=== PATIENT | female | born 1935 | race Two or more races ===

== ENCOUNTER 2022-08-14 14:27 | Inpatient (IN) | payer MEDICARE, MEDICAID ==
[~2022-08-14] VITALS: Ht 152.4 cm; Wt 57.6 kg
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
--- NOTE | 2022-08-14 15:06 | NUR ---
DR GRACE AT BEDSIDE FOR EVAL.
[2022-08-14] MEDS ORDERED: INSULIN REG (15:09)
--- NOTE | 2022-08-14 15:25 | NUR ---
BIOINFORMATICS SCIENTIST AT BEDSIDE FOR BLOOD DRAW.
--- NOTE | 2022-08-14 15:25 | NUR ---
Francesco au in [facility] - 08/14/22 at 1624 by FREDERICK SCREW REMOVER AT BEDSIDE FOR ALISHAAL.
--- NOTE | 2022-08-14 15:27 | NUR ---
Francesco au in [facility] - 08/14/22 at 1541 by FREDERICK KELSY FUENTES,
[2022-08-14 15:41] LABS: BASOPHILS % (AUTO) 0.6 % (0.0-2.0); EOSINOPHILS % (AUTO) 2.6 % (0.0-6.0); HEMATOCRIT 38 % (33-45); HEMOGLOBIN 12.2 g/dL (11.5-14.8); LYMPHOCYTES # (AUTO) 2.2 K/uL (0.8-4.8); LYMPHOCYTES % (AUTO) 30.6 % (20.0-44.0); MEAN CORPUSCULAR HGB CONC 32 g/dl (31.0-36.0); MEAN CORPUSCULAR VOLUME 92 fL (82-100); MONOCYTES # (AUTO) 0.4 K/uL (0.1-1.30); MONOCYTES % (AUTO) 5.4 % (2.0-12.0); NEUTROPHILS # (AUTO) 4.4 K/uL (1.8-8.9); NEUTROPHILS % (AUTO) 60.8 % (43.0-81.0); PLATELET COUNT (AUTO) 209 K/uL (150-450); RED BLOOD CELL COUNT(AUTO) 4.11 MIL/uL (4.0-5.2); WHITE BLOOD COUNT (AUTO) 7.3 K/uL (4.3-11.0)
[2022-08-14 15:52] LABS: CALCIUM, SERUM 8.8 mg/dL (8.5-10.1); CARBON DIOXIDE 26 mmol/L (21-32); CHLORIDE 106 mmol/L (98-107); CREATININE 1.4 mg/dL (0.6-1.3); GLUCOSE 168 mg/dL (74-106); POTASSIUM 4.3 mmol/L (3.5-5.1); SODIUM SERUM 139 mmol/L (136-145); UREA NITROGEN, BLOOD 36 mg/dL (7-18)
--- NOTE | 2022-08-14 16:23 | NUR ---
COVID SWAB AND URINE COLLECTED AND SENT
[2022-08-14 17:32] LABS: BILIRUBIN,URINE NEGATIVE (NEGATIVE); COLOR,URINE YELLOW (YELLOW); LEUKOCYTE ESTERASE ,URINE 3+ (NEGATIVE); NITRITE, URINE NEGATIVE (NEGATIVE); PROTEIN,URINE TRACE mg/dl (NEGATIVE); UGLUCOSE TRACE mg/dL (NEGATIVE); UROBILINOGEN,URINE 0.2 EU/dL (0.2)
--- NOTE | 2022-08-14 17:43 | NUR ---
BED 116-1, JOSE GOLDBERG
--- NOTE | 2022-08-14 18:07 | NUR ---
NEW BED ASSIGNMENT 314-2
--- NOTE | 2022-08-14 18:20 | NUR ---
REPORT GIVEN TO FAWN SANTANA FOR [place]
--- NOTE | 2022-08-14 18:25 | NUR ---
TRANSFERRED TO BED 314 IN STABLE CONDITION
[2022-08-14] MEDS ORDERED: ONDANSETRON HCL/PF 4 MG/2 ML VIAL IVP PRN (18:30)
[2022-08-14] MEDS ORDERED: MAGNESIUM HYDROXIDE 30 ML UDC PO PRN (18:30)
[2022-08-14] MEDS ORDERED: MAG HYDROX/AL HYDROX/SIMETH 30 ML UDC PO PRN (18:30)
[2022-08-14] MEDS ORDERED: DEXTROSE 50%-WATER 50 ML DISP.SYRIN IV PRN (18:30)
[2022-08-14] MEDS ORDERED: Z GUARD REMEDY 4 OZ OINT TP PRN (18:30)
[2022-08-14] MEDS: ACETAMINOPHEN 325 MG TABLET PO PRN (18:52)
[2022-08-14 18:55] LABS: BACTERIA,URINE 3+ /HPF (None Seen); WBC,URINE 51-80 /HPF (0-3)
--- NOTE | 2022-08-14 19:40 | NUR ---
MS RN OPENING NOTE RECEIVED PATIENT IN BED; AWAKE, ALERT AND ORIENTED X 4. CITIZEN OF [place] SPEAKING. ON ROOM AIR; TOLERATING WELL. BREATHING EVEN AND NONLABORED. NOT IN ANY FORM OF RESPIRATORY DISTRESS. DENIES ANY PAIN OR DISCOMFORT AT THIS TIME. WITH IV ACCESS ON RIGHT FOREARM 20g; PATENT, INTACT AND SALINE LOCKED. ABLE TO MAKE NEEDS KNOWN. SAFETY MEASURES IMPLEMENTED: CALL LIGHT AND TABLE WITHIN REACH, SIDE RAILS UP X 2, BED IN LOWEST LOCKED POSITION. WILL CONTINUE PLAN OF CARE.
[2022-08-14] MEDS: IV NS 0.9% 1,000 ML IV PRN (19:56)
[2022-08-14] MEDS: CEFTRIAXONE 1 G in IV D5W 50 ML IV SCH (19:58)
[2022-08-14 20:00] VITALS: BP 158/67
[2022-08-14] MEDS: BLOOD SUGAR DIAGNOSTIC 1 EACH STRIP VI SCH (22:09)
[2022-08-14] MEDS: *INSULIN REGULAR(HUMULIN R)HUM 100 UNIT/ML VIAL SQ PRN (22:38)
--- NOTE | 2022-08-14 22:38 | NUR ---
RN NOTE BLOOD SUGAR CHECKED - 144 MG/DL. 2 UNITS REGULAR INSULIN GIVEN SQ ORDERED PER SLIDING SCALE. WILL CONTINUE TO MONITOR S/S OF HYPOGLYCEMIA/HYPERGLYCEMIA.
[2022-08-15] MEDS: ACETAMINOPHEN 325 MG TABLET PO PRN (04:12)
--- NOTE | 2022-08-15 06:15 | NUR ---
RN NOTE PATIENT COMPLAINED OF LEFT LOWER LEG PAIN AND ASKING FOR A STRONGER PAIN MED. LEAD ASSEMBLER HOSPITALIST GRIS KNAPP MADE AWARE; WITH ORDER MADE AND CARRIED OUT.
[2022-08-15] MEDS: MORPHINE SULFATE INJ 2 MG/ML DISP.SYRIN IV PRN ×2 (06:26→12:49)
[2022-08-15] MEDS: INSULIN REGULAR, HUMAN 100 UNIT/ML 3 ML VIAL SQ PRN ×3 (06:27→17:33)
[2022-08-15] MEDS: BLOOD SUGAR DIAGNOSTIC 1 EACH STRIP VI SCH ×4 (06:27→22:03)
[2022-08-15 06:41] LABS: BASOPHILS # (AUTO) 0.1 K/uL (0.0-0.2); BASOPHILS % (AUTO) 1.3 % (0.0-2.0); EOSINOPHILS % (AUTO) 4.9 % (0.0-6.0); HEMATOCRIT 36 % (33-45); HEMOGLOBIN 12.2 g/dL (11.5-14.8); LYMPHOCYTES # (AUTO) 2.1 K/uL (0.8-4.8); LYMPHOCYTES % (AUTO) 39.7 % (20.0-44.0); MEAN CORPUSCULAR HGB CONC 34 g/dl (31.0-36.0); MEAN CORPUSCULAR VOLUME 91 fL (82-100); MONOCYTES # (AUTO) 0.3 K/uL (0.1-1.30); MONOCYTES % (AUTO) 6.7 % (2.0-12.0); NEUTROPHILS # (AUTO) 2.5 K/uL (1.8-8.9); NEUTROPHILS % (AUTO) 47.4 % (43.0-81.0); PLATELET COUNT (AUTO) 210 K/uL (150-450); RED BLOOD CELL COUNT(AUTO) 3.98 MIL/uL (4.0-5.2); WHITE BLOOD COUNT (AUTO) 5.2 K/uL (4.3-11.0)
--- NOTE | 2022-08-15 06:55 | NUR ---
MS RN CLOSING NOTE PATIENT IN BED; AWAKE, A/O X 4. BENGALI SPEAKING. STABLE ON ROOM AIR. IN NO APPARENT DISTRESS. DENIES ANY PAIN OR DISCOMFORT AT THIS TIME. WITH IV ACCESS ON RIGHT FOREARM 20g; PATENT, INTACT AND SALINE LOCKED. ALL NEEDS ATTENDED. SAFETY MEASURES MAINTAINED: CALL LIGHT AND TABLE WITHIN REACH, SIDE RAILS UP X 2, BED IN LOWEST LOCKED POSITION. ENDORSED TO ESTHER HILARIO FOR [place].
[2022-08-15 07:00] VITALS: BP 129/66
[2022-08-15 07:10] LABS: CALCIUM, SERUM 8.8 mg/dL (8.5-10.1); CREATININE 1.1 mg/dL (0.6-1.3); MAGNESIUM 1.9 mg/dL (1.8-2.4); PHOSPHORUS 3.9 mg/dL (2.5-4.9)
--- NOTE | 2022-08-15 07:35 | NUR ---
ms rn received on bed, awake,alert,oriented x4,not in any form of distress, respirations even and unlabored, no sob noted, micronesian speaking lady,denies pain,all needs attended.
--- NOTE | 2022-08-15 08:30 | NUR ---
ms rn breakfast served, was seen by dr. michael chen/ orders made and carried out.
[2022-08-15] MEDS: IV NS 0.9% 1,000 ML IV PRN (13:25)
--- NOTE | 2022-08-15 15:00 | NUR ---
ms rn on bed, no distress noted, visitor at bedside.
[2022-08-15 16:00] VITALS: BP 137/57
--- NOTE | 2022-08-15 17:58 | NUR ---
ms rn on bed, eating dinner, no distress noted, will endorse to night nurse for sana.
--- NOTE | 2022-08-15 19:30 | NUR ---
MS RN OPENING NOTE RECEIVED PATIENT IN BED; AWAKE. PT ALERT AND ORIENTED X 4, ABLE TO MAKE NEEDS KNOWN, UKRAINIAN SPEAKING. ON ROOM AIR; TOLERATING RA WELL. BREATHING EVEN AND NONLABORED. NOT IN ANY FORM OF RESPIRATORY DISTRESS. DENIES ANY PAIN OR DISCOMFORT AT THIS TIME. IV ACCESS TO RIGHT FOREARM 20G; IV PATENT, INTACT, AND SALINE LOCKED. SAFETY MEASURES IMPLEMENTED: CALL LIGHT AND TABLE WITHIN REACH, SIDE RAILS UP X 2, BED IN LOWEST LOCKED POSITION. WILL CONTINUE PLAN OF CARE.
[2022-08-15 20:00] VITALS: BP 161/73
[2022-08-15] MEDS: CEFTRIAXONE 1 G in IV D5W 50 ML IV SCH (20:48)
[2022-08-15] MEDS: *INSULIN REGULAR(HUMULIN R)HUM 100 UNIT/ML VIAL SQ PRN (22:16)
[2022-08-16] MEDS: INSULIN REGULAR, HUMAN 100 UNIT/ML 3 ML VIAL SQ PRN ×2 (06:38→18:35)
[2022-08-16 07:00] VITALS: BP 142/76
[2022-08-16 07:01] LABS: BASOPHILS % (AUTO) 0.9 % (0.0-2.0); EOSINOPHILS % (AUTO) 5.9 % (0.0-6.0); HEMATOCRIT 38 % (33-45); HEMOGLOBIN 12.4 g/dL (11.5-14.8); LYMPHOCYTES # (AUTO) 1.9 K/uL (0.8-4.8); LYMPHOCYTES % (AUTO) 41.6 % (20.0-44.0); MEAN CORPUSCULAR HGB CONC 33 g/dl (31.0-36.0); MEAN CORPUSCULAR VOLUME 92 fL (82-100); MONOCYTES # (AUTO) 0.4 K/uL (0.1-1.30); MONOCYTES % (AUTO) 9.3 % (2.0-12.0); NEUTROPHILS % (AUTO) 42.3 % (43.0-81.0); PLATELET COUNT (AUTO) 205 K/uL (150-450); WHITE BLOOD COUNT (AUTO) 4.6 K/uL (4.3-11.0)
--- NOTE | 2022-08-16 07:08 | NUR ---
MS RN CLOSING NOTE LEFT PATIENT IN BED; AWAKE, A/O X 4. GUATEMALAN SPEAKING. STABLE ON ROOM AIR. NO RESPIRATORY DISTRESS OR SOB NOTED. DENIES ANY PAIN OR DISCOMFORT AT THIS TIME. IV ACCESS TO RIGHT FOREARM 20G; IV PATENT, INTACT AND SALINE LOCKED. ALL NEEDS ATTENDED. SAFETY MEASURES MAINTAINED: CALL LIGHT AND TABLE WITHIN REACH, SIDE RAILS UP X 2, BED LOCKED IN LOW POSITION. WILL ENDORSE TO AM RN FOR [place].
[2022-08-16 07:34] LABS: CALCIUM, SERUM 8.5 mg/dL (8.5-10.1); CREATININE 0.9 mg/dL (0.6-1.3); POTASSIUM 4.6 mmol/L (3.5-5.1)
[2022-08-16] MEDS: BLOOD SUGAR DIAGNOSTIC 1 EACH STRIP VI SCH ×4 (07:35→22:00)
[2022-08-16 16:00] VITALS: BP 159/74
[2022-08-16] MEDS: MORPHINE SULFATE INJ 2 MG/ML DISP.SYRIN IV PRN (16:11)
--- NOTE | 2022-08-16 18:56 | NUR ---
RN CLOSING NOTES PATIENT RECEIVED IN BED AND AWAKE. A/O X4 AND ABLE TO VERBALIZE NEEDS. IV ACCESS TO R-UPPER FA INFILTRATED; REPLACED TO R-LOWER FA 22G. INTACT, PATENT AND SL. PATIENT C/O PAIN TO BILATERAL HIPS. RECEIVED PRN MORPHINE VIA IV PUSH. MEDICATION EFFECTIVE. BS CHECKS STABLE ON SHIFT @ 117 & 137 (2UNITS INSULIN COVERAGE GIVEN) . PATIENT OBSERVED AMBULATING THROUGHOUT ROOM WITH ASSIST FROM DME (CANE). TOLERATED ALL MEALS AND MEDICATIONS WELL. NO S/SX OF DISTRESS. SAFETY MEASURES INTACT WITH BED LOW AND LOCKED. CALL LIGHT WITHIN REACH. WILL CONT TO MONITOR
--- NOTE | 2022-08-16 19:30 | NUR ---
RN OPENING NOTE PATIENT IN BED, AWAKE. PATIENT 'S AND SISTER AT BEDSIDE. PATIENT IS ABLE TO MAKE NEEDS KNOWN, PRIMARILY KYRGYZ SPEAKING. R FA 22 G, IV ACCESS INFILTRATED. WILL INSERT NEW IV ACCESS. PATIENT DOES NOT REPORT ANY PAIN AT THIS TIME. CANE AT BEDSIDE. PATIENT NOT IN ANY APPARENT DISTRESS. SAFETY MEASURES IN PLACE: BED LOCKED AND IN LOWEST POSITION, CALL LIGHT WITHIN REACH, SIDE RAILS UP. WILL MONITOR PATIENT CLOSELY.
[2022-08-16 20:00] VITALS: BP 134/59
--- NOTE | 2022-08-16 20:10 | NUR ---
R HAND 22 G ESTABLISHED, PATENT AND INTACT, FLUSHING WELL.
[2022-08-16] MEDS: CEFTRIAXONE 1 G in IV D5W 50 ML IV SCH (20:14)
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
[2022-08-17 06:34] LABS: BASOPHILS % (AUTO) 0.6 % (0.0-2.0); EOSINOPHILS % (AUTO) 4.8 % (0.0-6.0); HEMATOCRIT 38 % (33-45); HEMOGLOBIN 12.5 g/dL (11.5-14.8); LYMPHOCYTES % (AUTO) 39.6 % (20.0-44.0); MEAN CORPUSCULAR HGB CONC 33 g/dl (31.0-36.0); MEAN CORPUSCULAR VOLUME 91 fL (82-100); MONOCYTES # (AUTO) 0.4 K/uL (0.1-1.30); MONOCYTES % (AUTO) 7.7 % (2.0-12.0); NEUTROPHILS # (AUTO) 2.4 K/uL (1.8-8.9); NEUTROPHILS % (AUTO) 47.3 % (43.0-81.0); PLATELET COUNT (AUTO) 223 K/uL (150-450); RED BLOOD CELL COUNT(AUTO) 4.16 MIL/uL (4.0-5.2)
[2022-08-17] MEDS: BLOOD SUGAR DIAGNOSTIC 1 EACH STRIP VI SCH ×2 (06:41→12:00)
[2022-08-17 06:58] LABS: CALCIUM, SERUM 8.7 mg/dL (8.5-10.1); POTASSIUM 4.7 mmol/L (3.5-5.1)
[2022-08-17 07:00] VITALS: BP 137/79
--- NOTE | 2022-08-17 07:37 | NUR ---
RN CLOSING NOTE BS 124 MG/DL, NO COVERAGE GIVEN. PATIENT PERAZA SNOT REPORT ANY PAIN AT THIS TIME. R HAND 22 G STILL PATENT AND INTACT, INFUSING NS AT 75 ML/HR. SAFETY MEASURES IMPLEMENTED. ALL NEEDS MET AND CARRIED OUT. ENDORSED TO DAY SHIFT NURSE FOR [place].
[2022-08-17] MEDS ORDERED: CEPH500C2 PO (09:17)
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
[2022-08-17 12:00] VITALS: BP 101/52
--- NOTE | 2022-08-17 14:56 | NUR ---
GEAR HOBBER NOTE PATIENT DISCHARGED FROM FACILITY @ 2744. PATIENT TRANSPORTED VIA GURNEY AND AMBULANCE TO [place]. ACCOMPANIED BY FAMILY FRIEND- KING. IV REMOVED, BELONGINGS ACCOUNTED FOR AND TAKEN WITH PATIENT.
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
== END 2022-08-17 15:00 | DRG 922 ==
LOC: ER 14:41 → MED 18:10
PROVIDERS: ADMIT Internal Medicine; ATTEND Internal Medicine
DX: T76.91XA Unspecified adult maltreatment, suspected, initial encounter (principal); N17.0 Acute kidney failure with tubular necrosis; N39.0 Urinary tract infection, site not specified; E11.65 Type 2 diabetes mellitus with hyperglycemia; R62.7 Adult failure to thrive; Z20.822 Contact with and (suspected) exposure to COVID-19; Z59.00 Homelessness unspecified; Z91.14 Patient's other noncompliance with medication regimen; G89.29 Other chronic pain; Z68.24 Body mass index [BMI] 24.0-24.9, adult; Z91.81 History of falling; Z87.828 Personal history of other (healed) physical injury and trauma
CPT/HCPCS: 36415; 80048-TC; 81001; 82962-TC; 83735-TC; 84100-TC; 85025-TC; 87081-TC; 87086-TC; 97112-TC; 97530-TC; C9803; G0378; J0696; J1815; J2270; J7030; J7060